=== PATIENT | male | born 1945 | race Caucasian/White ===

== ENCOUNTER 2019-01-01 09:32 | Inpatient (IN) | payer MEDICARE, OTHER ==
[~2019-01-01] VITALS: Ht 180.3 cm; Wt 94.8 kg
[~2019-01-01 09:32] MED LIST: IMAT400T5 PO; TAMS0.4C36 PO
[2019-01-01] MEDS ORDERED: SODIUM CHLORIDE 0.9% 1,000 ML IVB ONE (11:14)
[2019-01-01] MEDS ORDERED: ONDANSETRON HCL 4 MG/2 ML VIAL IV ONE ×2 (11:15→16:45)
[2019-01-01 11:42] LABS: Basophils # (auto) 0 uL; Basophils % (auto) 0.2 % (0.0-2.0); Eosinophils # (auto) 0.1 uL; Eosinophils % (auto) 1.3 % (0.0-7.0); Hematocrit 43.2 % (41.0-53.0); Hemoglobin 14.5 g/dL (13.5-17.5); Lymphocytes # (auto) 0.7 uL; Mean Corpuscular Hemoglobin 29.9 pg (28.0-32.0); Mean Corpuscular Hgb Conc. 33.6 g/dL (32.0-36.0); Monocytes # (auto) 1.2 uL; Neutrophils # (auto) 7.3 uL; Neutrophils % (auto) 78.5 % (37.0-80.0); Nucleated Red Blood Cells % 0.1 %; Platelet Count (auto) 174 10^3/uL (140-450); Red Blood Cells 4.86 10^6/uL (4.5-5.90); Red Cell Distribution Width 14.7 % (11.8-14.3); White Blood Cell 9.4 10^3/uL (4.4-10.8)
[2019-01-01 12:13] LABS: Anion Gap 11 (5-15); Carbon Dioxide 15 mmol/L (21-32); Chloride 108 mmol/L (98-107); Potassium 4.9 mmol/L (3.5-5.1); Sodium 134 mmol/L (136-145)
[2019-01-01 12:14] LABS: Alanine Aminotransferase 312 U/L (16-61); Albumin 3.8 g/dL (3.4-5.0); Alkaline Phosphatase 234 U/L (45-117); Aspartate Aminotransferase 223 U/L (15-37); BUN/Creatinine Ratio 16.1; Bilirubin, Total 0.9 mg/dL (0.2-1.0); Blood Urea Nitrogen 34 mg/dL (7-18); Calcium 7.9 mg/dL (8.5-10.1); GFR African American 40 mL/min; GFR Non-African American 33 mL/min; Glucose 105 mg/dL (74-106); Lipase 125 U/L (73-393); Magnesium 3.1 mg/dL (1.6-2.6); Total Protein 8.3 g/dL (6.4-8.2)
[2019-01-01 14:56] LABS: Urine Bacteria NONE SEEN /hpf (None Seen); Urine Blood Negative /uL (Negative); Urine Hyaline Cast MANY /lpf (0 - 2); Urine Mucus FEW (None Seen); Urine Specific Gravity 1.027 (1.001-1.035); Urine WBC 23 /hpf (0 - 3)
[2019-01-01] MEDS ORDERED: metroNIDAZOLE 500MG/100ML 100 ML IV ONE (17:00)
[2019-01-01] MEDS ORDERED: cefTRIAXone 1GM/50ML D5W 50 ML IV ONE (17:00)
[2019-01-01] MEDS ORDERED: PROMETHAZINE HCL 25 MG/ML 1ML IV PRN (19:00)
[2019-01-01] MEDS ORDERED: ACETAMINOPHEN 500 MG TAB PO PRN (19:00)
[2019-01-01] MEDS ORDERED: CALCIUM CARB 500 MG CHEW TAB PO PRN (19:00)
[2019-01-01] MEDS ORDERED: MULTIPLE VITAMIN 10 ML, MAGNESIUM SULF SDV 50% 8 MEQ, THIAMINE INJ 100 MG in D5W/SOD CH... IV SCH (19:00)
[2019-01-01] MEDS ORDERED: HYDROcodone-ACET 5/325MG TAB PO PRN (19:00)
[2019-01-01] MEDS ORDERED: MORPHINE SULF INJ 2 MG/ML SYRINGE 1ML IV PRN ×2 (19:00)
[2019-01-01] MEDS: D5W/SOD CHL 0.45% 1,000 ML IV SCH (19:00)
[2019-01-01] MEDS ORDERED: ONDANSETRON HCL 4 MG/2 ML VIAL IV PRN (19:00)
[2019-01-01] MEDS ORDERED: NITROGLYCERIN 0.4 MG SL TAB SL PRN (19:00)
[2019-01-01] MEDS ORDERED: LEVOFLOXACIN 750MG 150 ML IV SCH (20:00)
[2019-01-01 21:00] VITALS: BP 129/68
--- NOTE | 2019-01-01 21:00 | NUR ---
TELEMETRY ADMIT FROM ER SHAHRIAR PAULINO admitted to Telemetry unit after SBAR received. Patient oriented to ANDREW WRIGHT, primary RN, unit, room, bed, and unit policies regarding patient care and visiting hours. Patient now on continuous telemetry monitoring, tele # 1, and telemetry reading on arrival to unit is sinus rhythm. Patient weighed by bedscale and encouraged to call as needed. All questions and concerns addressed, patient verbalized understanding. Bed is locked in lowest position, side rails x 2 are up, call light is within reach, and bed alarm is on.
[2019-01-01 22:00] VITALS: BP 129/68
[2019-01-01] MEDS: FAMOTIDINE (10MG/ML) 2ML VL IV SCH (22:00)
--- NOTE | 2019-01-01 22:00 | NUR ---
RE: CHEMO PILLS (HOME MED) Patient takes Bosutinib 500mg daily with food. Patient states this is his chemo oral medication that he must take every day.
[2019-01-02] MEDS: metroNIDAZOLE 500MG/100ML 100 ML IV SCH ×4 (00:13→18:07)
[2019-01-02] MEDS ORDERED: [UNRECOGNIZED DRUG - CODE] PO (01:01)
[2019-01-02] MEDS ORDERED: CHOL20007 PO (01:02)
--- NOTE | 2019-01-02 02:20 | NUR ---
Rounds Patient sleeping in bed with symmetrical chest rise and fall. No S/S of distress/SOB noted. Bed is locked in lowest position, side rails x 2 are up, and call light is within reach.
[2019-01-02] MEDS: D5W/SOD CHL 0.45% 1,000 ML IV SCH (05:00)
[2019-01-02 05:39] VITALS: BP 108/66
[2019-01-02 06:02] LABS: Basophils # (auto) 0 uL; Basophils % (auto) 0.2 % (0.0-2.0); Eosinophils # (auto) 0.1 uL; Eosinophils % (auto) 1.9 % (0.0-7.0); Hematocrit 36.9 % (41.0-53.0); Hemoglobin 12.7 g/dL (13.5-17.5); Lymphocytes # (auto) 1.1 uL; Lymphocytes % (auto) 15.6 % (10.0-50.0); Mean Corpuscular Hemoglobin 29.7 pg (28.0-32.0); Mean Corpuscular Hgb Conc. 34.4 g/dL (32.0-36.0); Mean Corpuscular Volume 86.5 fL (80.0-100.0); Monocytes # (auto) 1.1 uL; Monocytes % (auto) 15.5 % (0.0-12.0); Neutrophils # (auto) 4.7 uL; Neutrophils % (auto) 66.8 % (37.0-80.0); Nucleated Red Blood Cells % 0.1 %; Platelet Count (auto) 180 10^3/uL (140-450); Red Blood Cells 4.27 10^6/uL (4.5-5.90); Red Cell Distribution Width 14.6 % (11.8-14.3); White Blood Cell 7.1 10^3/uL (4.4-10.8)
[2019-01-02 06:19] LABS: Albumin 3.3 g/dL (3.4-5.0); Calcium 7.4 mg/dL (8.5-10.1); Magnesium 2.9 mg/dL (1.6-2.6); Potassium 3.9 mmol/L (3.5-5.1)
[2019-01-02 06:25] LABS: BUN/Creatinine Ratio 16.8; Bilirubin, Total 0.4 mg/dL (0.2-1.0); Total Protein 7.1 g/dL (6.4-8.2)
--- NOTE | 2019-01-02 06:52 | NUR ---
HOSPITALIST PAGED RE: CHEMO MEDICATION Hospitalist paged regarding patients home medications. Patient states he takes oral chemo medication: Bosutinib 500mg every morning at 9am with food. Awaiting call back.
--- NOTE | 2019-01-02 07:00 | NUR ---
Opening Shift Note Assumed care of the patient from the restaurant shift supervisor RN. The patient is A&Ox4, no signs or symptoms of distress. Educated the patient on POC and patient verbalized understanding. The patient's call light is within reach and bed is in the lowest, locked position. Will round hourly and continue to monitor.
--- NOTE | 2019-01-02 07:39 | NUR ---
CLOSING SHIFT NOTE Patient is laying in bed awake with no S/S of distress/SOB noted. Hospitalist was paged regarding reconciling patients home medications but hospitalist did not call back. Endorsed to POLLY King.
[2019-01-02 08:00] VITALS: BP 121/77
--- NOTE | 2019-01-02 08:37 | NUR ---
Dr. Olivas at bedside
[2019-01-02] MEDS: SODIUM BICARB 50ML SYR 75 ML in D5W/SOD CHL 0.45% 1,000 ML IV SCH ×2 (08:55→17:35)
[2019-01-02 08:57] VITALS: BP 121/77
[2019-01-02] MEDS: FAMOTIDINE (10MG/ML) 2ML VL IV SCH (10:50)
[2019-01-02 13:00] VITALS: BP 122/72
[2019-01-02 16:45] VITALS: BP 120/64
--- NOTE | 2019-01-02 18:56 | NUR ---
DR. PANIAGUA AT BEDSIDE HOLD THE PATIENT'S CHEMO MEDICATION UNTIL HE SEES THE PHYSICIAN IN FOLLOW-UP PER HIS ORDER.
--- NOTE | 2019-01-02 19:35 | NUR ---
Opening Shift Note Assumed care of patient, awake and alert x4. Patient denies pain at this time. Instructed on plan of care and to call for assistance as needed. Bed is locked in lowest position, side rails x 2 are up, and call light is within reach.
[2019-01-02 22:10] VITALS: BP 129/63
[2019-01-03] MEDS: metroNIDAZOLE 500MG/100ML 100 ML IV SCH ×3 (00:02→11:44)
[2019-01-03] MEDS: SODIUM BICARB 50ML SYR 75 ML in D5W/SOD CHL 0.45% 1,000 ML IV SCH (01:51)
--- NOTE | 2019-01-03 03:07 | NUR ---
Rounds Patient is sleeping in bed with symmetrical chest rise and fall. No S/S of distress or SOB noted. Bed is locked in lowest position, side rails x 2 are up, call light is within reach, and bed alarm is on.
[2019-01-03 05:00] VITALS: BP 105/63
[2019-01-03 05:46] LABS: Basophils # (auto) 0 uL; Basophils % (auto) 0.5 % (0.0-2.0); Eosinophils # (auto) 0.3 uL; Eosinophils % (auto) 4.8 % (0.0-7.0); Hematocrit 33.4 % (41.0-53.0); Hemoglobin 11.6 g/dL (13.5-17.5); Lymphocytes # (auto) 0.8 uL; Lymphocytes % (auto) 13.5 % (10.0-50.0); Mean Corpuscular Hgb Conc. 34.8 g/dL (32.0-36.0); Mean Corpuscular Volume 86.3 fL (80.0-100.0); Monocytes # (auto) 0.9 uL; Monocytes % (auto) 15.1 % (0.0-12.0); Neutrophils # (auto) 4.1 uL; Neutrophils % (auto) 66.1 % (37.0-80.0); Nucleated Red Blood Cells % 0.1 %; Platelet Count (auto) 187 10^3/uL (140-450); Red Blood Cells 3.87 10^6/uL (4.5-5.90); Red Cell Distribution Width 14.3 % (11.8-14.3); White Blood Cell 6.2 10^3/uL (4.4-10.8)
[2019-01-03 06:08] LABS: Albumin 3.1 g/dL (3.4-5.0); BUN/Creatinine Ratio 18.5; Calcium 7.2 mg/dL (8.5-10.1); Magnesium 2.9 mg/dL (1.6-2.6); Potassium 3.8 mmol/L (3.5-5.1)
[2019-01-03 06:12] LABS: Bilirubin, Direct 0.1 mg/dL (0-0.2); Bilirubin, Total 0.3 mg/dL (0.2-1.0); Phosphorus 2.3 mg/dL (2.5-4.90); Total Protein 6.3 g/dL (6.4-8.2)
[2019-01-03 06:37] LABS: % Iron Saturation 46.1 % (20-55)
[2019-01-03 08:00] VITALS: BP 131/70
--- NOTE | 2019-01-03 08:00 | NUR ---
Opening Shift Note Assumed care of patient, awake and alert. No S/S of distress/SOB or pain. Instructed on POC and to call for assist PRN, will continue to monitor for changes Q1hr and PRN.
[2019-01-03 09:00] VITALS: BP 131/70
[2019-01-03] MEDS ORDERED: cefTRIAXone 1GM/50ML D5W 50 ML IV SCH (09:00)
[2019-01-03] MEDS: FAMOTIDINE (10MG/ML) 2ML VL IV SCH (09:29)
[2019-01-03 13:00] VITALS: BP 127/66
--- NOTE | 2019-01-03 14:30 | NUR ---
Discharge instructions given as ordered. Encourage [facility]. All questions and concerns addressed. Patient verbalized understanding. Medication reconciliation form completed and copy given to patient. Home medications held in Pharmacy returned to patient. IV removed with catheter intact, pressure dressing applied. Telemetry unit returned to [facility]. Patient ambulated with all personal belongings, accompanied by staff and family member. No distress noted at time of departure.
--- NOTE | 2019-01-03 14:30 | NUR ---
Opening Shift Note Assumed care of patient, awake and alert. No S/S of distress/SOB or pain. Instructed on POC and to call for assist PRN, will continue to monitor for changes Q1hr and PRN. Addendum: 01/03/19 at 1438 by Raymundo Grace RN error in time of documentation.
[2019-01-06 14:12] LABS: Ferritin 272.2 ng/mL (10-322)
== END 2019-01-03 14:30 | disposition home or self-care (01) | DRG 391 ==
LOC: ER 09:32 → TELE 19:50 → TELE-WESTW 20:56
PROVIDERS: ADMIT Nurse Practitioner Acute Care; ATTEND Internal Medicine
DX: A08.4 Viral intestinal infection, unspecified (principal); N17.0 Acute kidney failure with tubular necrosis; N39.0 Urinary tract infection, site not specified; E87.1 Hypo-osmolality and hyponatremia; C92.11 Chronic myeloid leukemia, BCR/ABL-positive, in remission; E87.2 Acidosis; E83.51 Hypocalcemia; K21.9 Gastro-esophageal reflux disease without esophagitis; E86.0 Dehydration; N40.0 Benign prostatic hyperplasia without lower urinary tract symptoms; E66.9 Obesity, unspecified; M19.90 Unspecified osteoarthritis, unspecified site; N18.3 Chronic kidney disease, stage 3 (moderate); K40.20 Bilateral inguinal hernia, without obstruction or gangrene, not specified as recurrent; K57.30 Diverticulosis of large intestine without perforation or abscess without bleeding; Z80.3 Family history of malignant neoplasm of breast; Z82.0 Family history of epilepsy and other diseases of the nervous system; Z82.49 Family history of ischemic heart disease and other diseases of the circulatory system; Z82.5 Family history of asthma and other chronic lower respiratory diseases; Z68.29 Body mass index [BMI] 29.0-29.9, adult; Z92.21 Personal history of antineoplastic chemotherapy
CPT/HCPCS: 36415; 71046; 74176; 76705; 80048; 80053; 80061; 80076; 81001; 82607; 82728; 82746; 82962; 83540; 83550; 83690; 83735; 84100; 85025; 87045; 87493; 87899; 93005; 94761; 96361; 96365; 96366; 96368; 96375; 96376; G0378; J0696; J1956; J2405; J3490